=== PATIENT | male | born 1940 | race Caucasian/White ===

== ENCOUNTER → 2017-01-24 | Outpatient (CLI) | payer MEDICARE, BC ==
[~2017-01-24] MED LIST: ASPIRIN 32325 MG/TAB PO; ASPIRIN 81M81 MG/TA2 PO; CATAPRES 0.1MG0.1 MG PO; CEPHALEXIN500 M1 PO; COLACE 100100 MG/CAP PO; CRESTOR 10MG10 MG PO; FLOMAX 0.40.4 MG/CAP PO; FOLIC ACID 11 MG/TA1 PO; FRESHKOTE; HCTZ12.5TAB PO; LORTAB 7.5/5001 TAB PO; LUTEIN PO; MOTRIN 200200 MG/TAB PO; NASONEX SPRAY17 GM NS; NEURONTIN300 MG/CAP PO; NITROQUICK0.4 MG SL; NORVASC 5MG5 MG/TAB PO; PRILOSEC 20MG20 MG PO; VIT C; VITAMIN C500 MG PO; VITAMIN D31000 IU PO; ZANTAC 7575 MG PO; ZESTRIL 20MG TA20 MG PO; ZYLOPRIM 300MG300 MG PO
== END ==
LOC: MHCPAIN 08:27
DX: G89.29 Other chronic pain (principal); M47.817 Spondylosis without myelopathy or radiculopathy, lumbosacral region; M96.1 Postlaminectomy syndrome, not elsewhere classified
CPT/HCPCS: G0463

== ENCOUNTER → 2017-03-14 | Outpatient (CLI) | payer MEDICARE, BC | LOC: MHCPAIN 08:29 | DX: G89.29 Other chronic pain (principal); M47.27 Other spondylosis with radiculopathy, lumbosacral region; M96.1 Postlaminectomy syndrome, not elsewhere classified | CPT/HCPCS: G0463 ==

== ENCOUNTER → 2017-05-14 | Outpatient (CLI) | payer MEDICARE, BC | LOC: MHCPAIN 08:05 | DX: G89.29 Other chronic pain (principal); M47.817 Spondylosis without myelopathy or radiculopathy, lumbosacral region; M54.16 Radiculopathy, lumbar region; M96.1 Postlaminectomy syndrome, not elsewhere classified; Z87.891 Personal history of nicotine dependence | CPT/HCPCS: G0463 ==

== ENCOUNTER → 2017-06-13 | Outpatient (CLI) | payer MEDICARE, BC | LOC: MHCPAIN 08:00 | DX: G89.29 Other chronic pain (principal); M47.817 Spondylosis without myelopathy or radiculopathy, lumbosacral region; M54.16 Radiculopathy, lumbar region; M53.3 Sacrococcygeal disorders, not elsewhere classified; M96.1 Postlaminectomy syndrome, not elsewhere classified; Z87.891 Personal history of nicotine dependence | CPT/HCPCS: G0463 ==

== ENCOUNTER → 2017-07-07 | Outpatient (CLI) | payer MEDICARE, BC | LOC: MHCPAIN 08:59 | DX: G89.29 Other chronic pain (principal); M47.27 Other spondylosis with radiculopathy, lumbosacral region; Z87.891 Personal history of nicotine dependence; Z79.82 Long term (current) use of aspirin | CPT/HCPCS: G0463 ==

== ENCOUNTER → 2017-08-06 | Outpatient (CLI) | payer MEDICARE, BC | LOC: MHCPAIN 07:52 | DX: G89.29 Other chronic pain (principal); M47.27 Other spondylosis with radiculopathy, lumbosacral region; M53.3 Sacrococcygeal disorders, not elsewhere classified; M96.1 Postlaminectomy syndrome, not elsewhere classified; Z87.891 Personal history of nicotine dependence; Z79.82 Long term (current) use of aspirin | CPT/HCPCS: G0463 ==

== ENCOUNTER → 2017-11-05 | Outpatient (CLI) | payer MEDICARE, BC | LOC: MHCPAIN 07:56 | DX: G89.29 Other chronic pain (principal); M47.27 Other spondylosis with radiculopathy, lumbosacral region; M96.1 Postlaminectomy syndrome, not elsewhere classified; Z87.891 Personal history of nicotine dependence | CPT/HCPCS: G0463 ==

== ENCOUNTER → 2018-02-03 | Outpatient (CLI) | payer MEDICARE, BC | LOC: MHCPAIN 07:55 | DX: G89.29 Other chronic pain (principal); M47.27 Other spondylosis with radiculopathy, lumbosacral region; M53.3 Sacrococcygeal disorders, not elsewhere classified; M96.1 Postlaminectomy syndrome, not elsewhere classified; Z87.891 Personal history of nicotine dependence | CPT/HCPCS: G0463 ==

== ENCOUNTER → 2018-03-06 | Outpatient (CLI) | payer MEDICARE, BC | LOC: MHCPAIN 08:08 | DX: G89.29 Other chronic pain (principal); M47.817 Spondylosis without myelopathy or radiculopathy, lumbosacral region; M54.16 Radiculopathy, lumbar region; M53.3 Sacrococcygeal disorders, not elsewhere classified; M96.1 Postlaminectomy syndrome, not elsewhere classified | CPT/HCPCS: G0463 ==

== ENCOUNTER → 2018-04-03 | Outpatient (CLI) | payer MEDICARE, BC | LOC: MHCPAIN 07:51 | DX: G89.29 Other chronic pain (principal); M47.817 Spondylosis without myelopathy or radiculopathy, lumbosacral region; M54.16 Radiculopathy, lumbar region; M53.3 Sacrococcygeal disorders, not elsewhere classified; M96.1 Postlaminectomy syndrome, not elsewhere classified | CPT/HCPCS: G0463 ==

== ENCOUNTER → 2018-06-03 | Outpatient (CLI) | payer MEDICARE, BC | LOC: MHCPAIN 07:55 | DX: G89.29 Other chronic pain (principal); M47.817 Spondylosis without myelopathy or radiculopathy, lumbosacral region; M54.16 Radiculopathy, lumbar region; M53.3 Sacrococcygeal disorders, not elsewhere classified; M96.1 Postlaminectomy syndrome, not elsewhere classified | CPT/HCPCS: G0463 ==

== ENCOUNTER → 2018-07-15 | Outpatient (CLI) | payer MEDICARE, BC | LOC: MHCPAIN 07:55 | DX: G89.29 Other chronic pain (principal); M47.817 Spondylosis without myelopathy or radiculopathy, lumbosacral region; M54.16 Radiculopathy, lumbar region; M53.3 Sacrococcygeal disorders, not elsewhere classified; M96.1 Postlaminectomy syndrome, not elsewhere classified | CPT/HCPCS: G0463 ==

== ENCOUNTER → 2018-09-16 | Outpatient (CLI) | payer MEDICARE, BC | LOC: MHCPAIN 08:22 | DX: G89.29 Other chronic pain (principal); M47.817 Spondylosis without myelopathy or radiculopathy, lumbosacral region; M54.16 Radiculopathy, lumbar region; M53.3 Sacrococcygeal disorders, not elsewhere classified; M96.1 Postlaminectomy syndrome, not elsewhere classified | CPT/HCPCS: G0463 ==

== ENCOUNTER → 2019-02-03 | Outpatient (CLI) | payer MEDICARE, BC | LOC: MHCPAIN 07:55 | DX: G89.29 Other chronic pain (principal); M47.817 Spondylosis without myelopathy or radiculopathy, lumbosacral region; M54.16 Radiculopathy, lumbar region; M53.3 Sacrococcygeal disorders, not elsewhere classified; M96.1 Postlaminectomy syndrome, not elsewhere classified | CPT/HCPCS: G0463 ==

== ENCOUNTER → 2019-04-27 | Outpatient (CLI) | payer MEDICARE, BC | LOC: MHCPAIN 07:56 | DX: G89.29 Other chronic pain (principal); M47.817 Spondylosis without myelopathy or radiculopathy, lumbosacral region; M54.16 Radiculopathy, lumbar region; M53.3 Sacrococcygeal disorders, not elsewhere classified; M96.1 Postlaminectomy syndrome, not elsewhere classified | CPT/HCPCS: G0463 ==

== ENCOUNTER → 2019-07-01 | Outpatient (CLI) | payer MEDICARE, BC | LOC: COL.RAD 14:43 | DX: Z01.812 Encounter for preprocedural laboratory examination (principal); N40.0 Benign prostatic hyperplasia without lower urinary tract symptoms; R10.9 Unspecified abdominal pain | CPT/HCPCS: Q9967 ==

== ENCOUNTER → 2019-07-21 | Outpatient (CLI) | payer MEDICARE, BC | LOC: MHCPAIN 07:55 | DX: G89.29 Other chronic pain (principal); M47.817 Spondylosis without myelopathy or radiculopathy, lumbosacral region; M54.16 Radiculopathy, lumbar region; M53.3 Sacrococcygeal disorders, not elsewhere classified; M96.1 Postlaminectomy syndrome, not elsewhere classified | CPT/HCPCS: G0463 ==

== ENCOUNTER → 2019-11-09 | Outpatient (CLI) | payer MEDICARE, BC | LOC: MHCPAIN 07:53 | DX: M47.817 Spondylosis without myelopathy or radiculopathy, lumbosacral region (principal); M54.16 Radiculopathy, lumbar region | CPT/HCPCS: G0463 ==

== ENCOUNTER → 2020-02-01 | Outpatient (CLI) | payer MEDICARE, BC | LOC: MHCPAIN 07:57 | DX: M47.27 Other spondylosis with radiculopathy, lumbosacral region (principal); M96.1 Postlaminectomy syndrome, not elsewhere classified | CPT/HCPCS: G0463 ==

== ENCOUNTER → 2020-05-03 | Outpatient (CLI) | payer MEDICARE, BC | LOC: MHCPAIN 07:52 | DX: M47.817 Spondylosis without myelopathy or radiculopathy, lumbosacral region (principal); M53.3 Sacrococcygeal disorders, not elsewhere classified; M54.16 Radiculopathy, lumbar region; G89.29 Other chronic pain; M96.1 Postlaminectomy syndrome, not elsewhere classified | CPT/HCPCS: G0463 ==

== ENCOUNTER → 2020-08-02 | Outpatient (CLI) | payer MEDICARE, BC | LOC: MHCPAIN 07:56 | DX: M47.817 Spondylosis without myelopathy or radiculopathy, lumbosacral region (principal); M96.1 Postlaminectomy syndrome, not elsewhere classified; M54.5 Low back pain; M53.3 Sacrococcygeal disorders, not elsewhere classified; G89.29 Other chronic pain | CPT/HCPCS: G0463 ==

== ENCOUNTER → 2020-10-24 | Outpatient (CLI) | payer MEDICARE, BC | LOC: MHCPAIN 08:01 | DX: M53.3 Sacrococcygeal disorders, not elsewhere classified (principal); M54.5 Low back pain; M96.1 Postlaminectomy syndrome, not elsewhere classified | CPT/HCPCS: G0463 ==

== ENCOUNTER → 2021-01-30 | Outpatient (CLI) | payer MEDICARE, BC | LOC: MHCPAIN 07:53 | DX: M47.816 Spondylosis without myelopathy or radiculopathy, lumbar region (principal); M54.5 Low back pain; M54.16 Radiculopathy, lumbar region; M96.1 Postlaminectomy syndrome, not elsewhere classified; G89.29 Other chronic pain | CPT/HCPCS: G0463 ==

== ENCOUNTER → 2021-04-17 | Outpatient (CLI) | payer MEDICARE, BC | LOC: MHCPAIN 07:56 | DX: M47.816 Spondylosis without myelopathy or radiculopathy, lumbar region (principal); M96.1 Postlaminectomy syndrome, not elsewhere classified; M53.3 Sacrococcygeal disorders, not elsewhere classified; G89.29 Other chronic pain | CPT/HCPCS: G0463 ==

== ENCOUNTER → 2021-07-17 | Outpatient (CLI) | payer MEDICARE, BC | LOC: MHCPAIN 07:56 | DX: M47.816 Spondylosis without myelopathy or radiculopathy, lumbar region (principal); M54.5 Low back pain; M96.1 Postlaminectomy syndrome, not elsewhere classified; M53.3 Sacrococcygeal disorders, not elsewhere classified | CPT/HCPCS: G0463 ==

== ENCOUNTER → 2021-10-16 | Outpatient (CLI) | payer MEDICARE, BC | LOC: MHCPAIN 07:52 | DX: M47.896 Other spondylosis, lumbar region (principal); M54.16 Radiculopathy, lumbar region; M53.3 Sacrococcygeal disorders, not elsewhere classified; M96.1 Postlaminectomy syndrome, not elsewhere classified | CPT/HCPCS: G0463 ==

== ENCOUNTER → 2022-02-05 | Outpatient (CLI) | payer MEDICARE, BC | LOC: MHCPAIN 07:54 | DX: M47.896 Other spondylosis, lumbar region (principal); M53.3 Sacrococcygeal disorders, not elsewhere classified; M96.1 Postlaminectomy syndrome, not elsewhere classified | CPT/HCPCS: G0463 ==

== ENCOUNTER → 2022-04-30 | Outpatient (CLI) | payer MEDICARE, BC | LOC: MHCPAIN 07:50 | DX: M47.896 Other spondylosis, lumbar region (principal); M53.3 Sacrococcygeal disorders, not elsewhere classified; M96.1 Postlaminectomy syndrome, not elsewhere classified; G89.29 Other chronic pain | CPT/HCPCS: G0463 ==

== ENCOUNTER → 2022-05-22 | Outpatient (CLI) | payer MEDICARE, BC | LOC: MHCPAIN 08:35 | DX: M47.817 Spondylosis without myelopathy or radiculopathy, lumbosacral region (principal); M53.3 Sacrococcygeal disorders, not elsewhere classified; M54.16 Radiculopathy, lumbar region; M96.1 Postlaminectomy syndrome, not elsewhere classified | CPT/HCPCS: G0463; J1100; Q9967 ==

== ENCOUNTER → 2022-05-23 | Outpatient (CLI) | payer MEDICARE, BC | LOC: MHCPAIN 07:57 | DX: M47.816 Spondylosis without myelopathy or radiculopathy, lumbar region (principal); M96.1 Postlaminectomy syndrome, not elsewhere classified; M53.3 Sacrococcygeal disorders, not elsewhere classified | CPT/HCPCS: 64483; Q9967 ==

== ENCOUNTER → 2022-06-18 | Outpatient (CLI) | payer MEDICARE, BC | LOC: MHCPAIN 08:23 | DX: M54.16 Radiculopathy, lumbar region (principal); M53.3 Sacrococcygeal disorders, not elsewhere classified; M96.1 Postlaminectomy syndrome, not elsewhere classified | CPT/HCPCS: G0463 ==

== ENCOUNTER → 2022-08-06 | Outpatient (CLI) | payer MEDICARE, BC | LOC: MHCPAIN 07:54 | DX: M47.896 Other spondylosis, lumbar region (principal); M53.3 Sacrococcygeal disorders, not elsewhere classified; M54.16 Radiculopathy, lumbar region; M96.1 Postlaminectomy syndrome, not elsewhere classified | CPT/HCPCS: G0463 ==

== ENCOUNTER → 2023-02-04 | Outpatient (CLI) | payer MEDICARE, BC | LOC: MHCPAIN 08:12 | DX: M54.50 Low back pain, unspecified (principal); M54.16 Radiculopathy, lumbar region; E11.40 Type 2 diabetes mellitus with diabetic neuropathy, unspecified | CPT/HCPCS: G0463 ==

== ENCOUNTER → 2024-02-03 | Outpatient (CLI) | payer MEDICARE, BC | LOC: MHCPAIN 07:55 | DX: M47.896 Other spondylosis, lumbar region (principal); M96.1 Postlaminectomy syndrome, not elsewhere classified; M25.561 Pain in right knee; M25.551 Pain in right hip | CPT/HCPCS: G0463 ==

== ENCOUNTER → 2024-06-04 | Outpatient (CLI) | payer MEDICARE, BC | LOC: MHCPAIN 08:15 | DX: M47.816 Spondylosis without myelopathy or radiculopathy, lumbar region (principal); M48.061 Spinal stenosis, lumbar region without neurogenic claudication; G89.29 Other chronic pain | CPT/HCPCS: G0463 ==

== ENCOUNTER → 2024-09-01 | Outpatient (CLI) | payer MEDICARE, BC | LOC: MHCPAIN 07:51 | DX: M48.061 Spinal stenosis, lumbar region without neurogenic claudication (principal); M00-M99 Diseases of the musculoskeletal system and connective tissue; I25.10 Atherosclerotic heart disease of native coronary artery without angina pectoris; Z95.5 Presence of coronary angioplasty implant and graft; E11.40 Type 2 diabetes mellitus with diabetic neuropathy, unspecified | CPT/HCPCS: G0463 ==